=== PATIENT | female | born 1945 | race Caucasian/White ===

== ENCOUNTER → 2018-06-03 | Outpatient (CLI) | payer MEDICARE, BC | END | disposition home or self-care (01) | LOC: CFH 13:04 | PROVIDERS: ATTEND Internal Medicine Cardiovascular Disease | DX: I08.3 Combined rheumatic disorders of mitral, aortic and tricuspid valves (principal); I49.3 Ventricular premature depolarization | CPT/HCPCS: 93306 ==

== ENCOUNTER → 2020-04-03 | Outpatient (CLI) | payer MEDICARE, BC ==
[2020-04-03 10:12] LABS: BASOPHILS % (AUTO) 0 % (0-1); EOSINOPHILS % (AUTO) 1 % (1-7); LYMPHOCYTES % (AUTO) 37 % (22-44); MD NO; MEAN CORPUSCULAR HEMOGLOBIN 31.1 pg (27.0-34.8); MEAN CORPUSCULAR HGB CONC 33.5 g/dL (32.4-35.8); MEAN PLATELET VOLUME 7.8 fL (7.4-10.4); MONOCYTES % (AUTO) 8 % (2-9); NEUTROPHILS % (AUTO) 54 % (42-75); PLATELET COUNT 314 x10^3/uL (130-400); RED BLOOD COUNT 4.55 x10^6/uL (3.82-5.3); RED CELL DISTRIBUTION WIDTH 13.8 % (9.6-15.2)
[2020-04-03 10:18] LABS: ALBUMIN 4.2 g/dL (3.4-5.0)
[2020-04-03 10:23] LABS: ALANINE AMINOTRANSFERASE 29 U/L (12-78); ALKALINE PHOSPHATASE 55 U/L (45-117); BILIRUBIN,TOTAL 0.9 mg/dL (0.2-1.0); CHOLESTEROL, TOTAL 240 mg/dL (140-239); CREATININE 0.95 mg/dL (0.55-1.02); HDL CHOL % 51 % (28-40); HDL CHOLESTEROL (DIRECT) 123 mg/dL (40-60); LDL CHOLESTEROL,CALCULATED 107 mg/dL (54-169); LDL/HDL RATIO 0.9 (0.5-3.0); TOTAL PROTEIN 7.3 g/dL (6.4-8.2); TRIGLYCERIDES 50 mg/dL (50-200); VLDL CHOLESTEROL 10 mg/dL (0-25)
[2020-04-03 10:42] LABS: ANION GAP 7 mmol/L (5-15); CHLORIDE 108 mmol/L (98-107)
== END | disposition home or self-care (01) ==
LOC: LAB 09:50
PROVIDERS: ATTEND Nurse Practitioner Family
DX: R00.2 Palpitations (principal); E55.9 Vitamin D deficiency, unspecified; I08.0 Rheumatic disorders of both mitral and aortic valves
CPT/HCPCS: 36415; 80053; 80061; 82306; 85025

== ENCOUNTER → 2020-10-29 | Outpatient (CLI) | payer MEDICARE, BC ==
[~2020-10-29] MED LIST: OMNIPAQUE 350 MG/ML, 100ML BOTTLE ONE
[2020-10-29 14:06] LABS: CREATININE 0.73 mg/dL (0.55-1.02)
== END | disposition home or self-care (01) ==
LOC: RAD 13:01
PROVIDERS: ATTEND Internal Medicine
DX: N28.1 Cyst of kidney, acquired (principal); R22.41 Localized swelling, mass and lump, right lower limb; M51.37 Other intervertebral disc degeneration, lumbosacral region
CPT/HCPCS: 36415; 74177; 82565; Q9967

== ENCOUNTER 2020-10-31 12:58 | Outpatient (CLI) | payer MEDICARE, BC ==
[2020-10-31] MEDS ORDERED: LIDOCAINE 1%, 10ML ONE (13:04)
== END 2020-10-31 23:59 | disposition home or self-care (01) ==
LOC: RAD 12:58
PROVIDERS: ATTEND Internal Medicine
DX: R22.41 Localized swelling, mass and lump, right lower limb (principal)
CPT/HCPCS: 10030; 20206; 76942; 87070; 87075; 87205; 88112; 88305